=== PATIENT | female | born 1935 | race Caucasian/White ===

== ENCOUNTER 2016-02-18 15:47 | Inpatient (IN) | payer MEDICARE, MEDICAID ==
[~2016-02-18] VITALS: Ht 152.4 cm; Wt 52.5 kg
[2016-02-18] MEDS ORDERED: PIPER/TAZO 3.375 GM PYXIS ONE (18:46)
[2016-02-18] MEDS ORDERED: SODIUM CHLORIDE 0.9% 100 ML IV ONE (18:47)
[2016-02-18 20:35] VITALS: BP_SYST 128; RESP 18; TEMP 99.5
[2016-02-18] MEDS ORDERED: DEXTROSE 50% SYRINGE 50 ML IV PRN (20:35)
[2016-02-18] MEDS ORDERED: GLUCAGON 1 MG VIAL IM PRN (20:35)
[2016-02-18] MEDS ORDERED: ACETAMINOPHEN 325 MG TAB PO PRN (20:40)
[2016-02-18] MEDS ORDERED: LEVOFLOXACIN 750 MG/150 ML 150 ML IV ONE (20:40)
[2016-02-18] MEDS ORDERED: ONDANSETRON 4 MG VIAL IV PUSH PRN (20:40)
[2016-02-18] MEDS ORDERED: **NOTE TO NURSE XX SCH (22:32)
[2016-02-19] VITALS (7 sets, daily range): BP systolic 130–152; RESP 16–20; TEMP 96.9–98.1; Ht 152.4 cm; Wt 52.5 kg
[2016-02-19] MEDS ORDERED: SODIUM CHLORIDE 0.9% 1,000 ML IV SCH (15:05)
[2016-02-20 02:51] VITALS: BP_SYST 140; RESP 18; TEMP 97.6
[2016-02-20 07:21] VITALS: BP_SYST 129; RESP 18; TEMP 97.6
[2016-02-20] MEDS: METOPROLOL TART 25 MG TAB PO SCH ×2 (08:50→20:48)
[2016-02-20] MEDS: LEVOTHYROXINE 0.175 MG TAB PO SCH (08:50)
[2016-02-20 11:56] VITALS: BP_SYST 133; RESP 20; TEMP 97.2
[2016-02-20 15:06] VITALS: BP_SYST 101; RESP 20; TEMP 97.7
[2016-02-20 19:22] VITALS: BP_SYST 147; RESP 24; TEMP 97.7
[2016-02-20] MEDS ORDERED: ALPRAZOLAM 0.25 MG TAB PO PRN (19:35)
[2016-02-20] MEDS ORDERED: LEVOFLOXACIN 500 MG/100 ML 100 ML IV SCH (21:00)
[2016-02-20] MEDS ORDERED: MIRTAZAPINE 15 MG TAB PO SCH (21:00)
[2016-02-20] MEDS ORDERED: Atorvastatin 20 MG TAB PO SCH (21:00)
[2016-02-20] MEDS ORDERED: ASPIRIN EC 81 MG TAB PO SCH (21:00)
[2016-02-20 23:41] VITALS: BP_SYST 136; RESP 20; TEMP 97.7
[2016-02-21] VITALS (7 sets, daily range): BP systolic 112–141; RESP 20–28; TEMP 96.8–97.8
[2016-02-21] MEDS: LEVOTHYROXINE 0.175 MG TAB PO SCH (06:01)
[2016-02-21] MEDS ORDERED: CEFTRIAXONE 1 GM in SODIUM CHLORIDE 0.9% 50 ML IV SCH (09:00)
[2016-02-21] MEDS ORDERED: MISSING DOSE XX ONE (09:20)
[2016-02-21] MEDS: METOPROLOL TART 25 MG TAB PO SCH (10:18)
[2016-02-21] MEDS ORDERED: LEVETIRACETAM INJ 500 MG in SODIUM CHLORIDE 0.9% 100 ML IV ONE (14:05)
== END 2016-02-21 18:51 | disposition short-term general hospital (02) | DRG 689 ==
LOC: ENRESERVTM → ENRESERVDT → ER 15:47 → ENPENDDIS 19:03 → EMR 19:03 → 4THW 20:25
PROVIDERS: ADMIT Internal Medicine Nephrology; ATTEND Internal Medicine Nephrology
DX: N39.0 Urinary tract infection, site not specified (principal); N18.6 End stage renal disease; I13.2 Hypertensive heart and chronic kidney disease with heart failure and with stage 5 chronic kidney disease, or end stage renal disease; G93.41 Metabolic encephalopathy; I50.32 Chronic diastolic (congestive) heart failure; R25.1 Tremor, unspecified; R13.10 Dysphagia, unspecified; Z99.2 Dependence on renal dialysis; J44.9 Chronic obstructive pulmonary disease, unspecified; G47.33 Obstructive sleep apnea (adult) (pediatric)
CPT/HCPCS: 36415; 36600; 70450; 70551; 71010; 80051; 80053; 80061; 80069; 80307; 80320; 80329; 81001; 82140; 82330; 82553; 82803; 82947; 83605; 84439; 84443; 84484; 85025; 85384; 85610; 85730; 87040; 87088; 93005; 96365